=== PATIENT | male | born 1970 | race Caucasian/White ===

== ENCOUNTER 2016-08-24 20:15 | Emergency (ER) | payer OTHER | END 2016-08-24 22:10 | disposition home or self-care (01) | LOC: ER 20:15 | DX: M25.512 Pain in left shoulder (principal); M79.602 Pain in left arm; W18.30XA Fall on same level, unspecified, initial encounter; Y92.248 Other public administrative building as the place of occurrence of the external cause; Z79.899 Other long term (current) drug therapy; Z88.5 Allergy status to narcotic agent | CPT/HCPCS: 72072; 72100; 73030; 96372; 99283-25; 99284 ==